=== PATIENT | male | born 1990 | race Caucasian/White ===

== ENCOUNTER 2024-08-24 16:34 | Inpatient (IN) | payer MEDICAID, SELFPAY ==
[2024-08-24] VITALS (11 sets, daily range): BP systolic 89–106; BP diastolic 57–71; PULSE 79–130; RESP 9–33; TEMP 36.8–38.9; O2SAT 85–100; BMI 23.3
--- NOTE | 2024-08-24 17:13 | PC.NURSE ---
sepsis alert called
--- NOTE | 2024-08-24 17:15 | XR_ITS ---
Examination: AP chest single view Technique one AP portable semiupright chest single view Exam date and time: August 24, 2024 Comparison July 31, 2009 INDICATIONS: Shortness of breath hypoxia sepsis today. FINDINGS: Prominent bilateral pneumonia, bibasilar right middle lobe and lingular segment left upper lobe Normal heart size Mild osteopenia IMPRESSION: Significant bilateral pneumonia
--- NOTE | 2024-08-24 17:23 | EDNOTE_ITS ---
ED General RME/HPI General Chief complaint: Flu Like Symptoms Stated complaint: sob, chest pain, cough x 2d Time Seen by Provider: 08/24/24 17:08 Arrival date/time: 08/24/24 16:34 CC: Chest pain shortness of breath HPI ongoing for the past 2 to 3 days with progressive increase in severity. The patient with these almost, stopped using heroin 1 year ago was continues to use methamphetamines until 2 days ago. Patient is awake and alert states the last time he ate was 1-1/2 days ago. Patient states sick chest pain significant when he coughs or takes a deep breath, patient has noted to be tachypneic tachycardic and hypoxemic upon arrival. However patient is awake, alert, baseline with no altered mentation. Related Data Home Medications ?Medication ?Instructions ?Recorded ?Confirmed albuterol sulfate 90 mcg/actuation 1 inh inhalation QI D PRN Shortness 03/01/22 03/01/22 aerosol inhaler Of Breath Or Wheezing Previous Rx's ?Medication ?Instructions ?Recorded ibuprofen 600 mg tablet 600 mg PO Q6H #30 tabs 02/12 naloxone 4 mg/actuation nasal 4 mg intranasal Q3M PRN opioid 08/17/23 spray (Narcan) overdose #2 ea Allergies Allergy/AdvReac Type Severity Reaction Status Date / Time No Known Allergies Allergy Verified 08/24/24 16:38 Review of Systems Review of Systems Narrative Review of Systems: GEN: + fever, no chills, no weight loss EYES: No discharge, no visual changes, no pain HEENT: No ear pain, no congestion, no sore throat PULM: No shortness of breath, + cough, no congestion CV: + chest pain, no dyspnea on exertion, no palpitations GI: No nausea, no vomiting, no diarrhea, no pain, no constipation : No frequency, no urgency, no dysuria MUSC/SKEL: No joint pain, no back pain SKIN: No rash PSYCH: No hallucinations, no depression HEME/LYMPH: No easy bleeding or bruising tendencies NEURO: No weakness, no headache Past Medical History Past Medical History CARDIAC: Negative Congestive Heart Failure RESPIRATORY: Negative Chronic Obstructive Pulmonary Disease (COPD) GENITOURINARY: Negative Renal Disease ENDOCRINE: Negative Diabetes Mellitus Type 1 or Diabetes Mellitus Type 2 Social History SMOKING STATUS: Current every day smoker ED Exam Narrative Physical exam: [General: In moderate discomfort but not in any acute distress Head normocephalic HEENT: Eyes: Pupils pulls are PERRLA EOMs are intact mouth pink dry membranes uvula is midline swallow symmetrical. Nose: No rhinorrhea epistaxis. All other subsystems of HEENT are within acceptable limits Neck is supple nontender no JVD no edema Chest equal chest rise nontender to palpation Respiratory: Tachypnea, bibasilar crackles on exhalation. CV: Rate rhythm is regular, tachycardic, no murmurs rubs or clicks Abdomen is soft nontender no masses positive bowel sounds all 4 quadrants Back: No CVA tenderness no spinous process tenderness from cervical spine thoracic and lumbar spine Skin: Open sores to the right sided nondenominational region of the cranium. A small scratch on the right lower leg, no full-thickness laceration. IV injection scarring to the left AC. Otherwise skin is intact no petechiae rash induration ulceration or crepitus Extremities: Moving all extremity against resistance cap refill less than 2 seconds neurosensory intact Neuro: Awake alert oriented x3 Glascow coma 15 no focal deficits] Course Course Course Narrative: Patient case discussed with resident for Dr. Velásquez who agrees to accept the patient for admission for pneumonia hypoxemia. Quality Measures none Orders Category Date Time Status Bedside COVID-19 Antigen Test NOW Care 08/24/24 19:23 Active Bedside Influenza A&B Antigen Test NOW Care 08/24/24 19:23 Active Dental Intern STAT Care 08/24/24 17:14 Active Continuous Pulse Oximetry STAT Care 08/24/24 17:14 Active EKG (ED ONLY) *Do not use* NOW Care 08/24/24 17:14 Active In and Out Catheter X1PRN Care 08/24/24 17:14 Active Insert IV NOW Care 08/24/24 17:14 Active NPO STAT Care 08/24/24 17:14 Active Strict Intake and Output Routine Care 08/24/24 17:14 Ordered EKG (ED Only) Stat Exams 08/24/24 17:14 Ordered XR chest 1V Stat Exams 08/24/24 17:15 Completed B-Type Natriuretic Peptide Stat Lab 08/24/24 17:50 Completed Blood Culture (Lab) Stat Lab 08/24/24 17:50 Received CBC Stat Lab 08/24/24 17:50 Completed Comprehensive Metabolic Panel Stat Lab 08/24/24 17:50 Completed Drug Screen,Urine Stat Lab 08/24/24 19:24 Ordered HIV (1&2) Antibody Rapid Stat Lab 08/24/24 19:22 Ordered HIV (1&2) Antibody Rapid Stat Lab 08/24/24 19:24 Ordered Hepatitis B Surface Ab Stat Lab 08/24/24 19:25 Ordered Hepatitis B Surface Antigen Stat Lab 08/24/24 19:25 Ordered LDH (Lactate Dehydrogenase) Stat Lab 08/24/24 17:50 Completed Lactate (Lactic Acid) Stat Lab 08/24/24 17:50 Results Lipase Stat Lab 08/24/24 17:50 Completed Magnesium Stat Lab 08/24/24 17:50 Completed Partial Thromboplastin Time Stat Lab 08/24/24 17:50 Completed Phosphorous Stat Lab 08/24/24 17:50 Completed Procalcitonin Stat Lab 08/24/24 17:50 Completed Prothrombin Time with INR Stat Lab 08/24/24 17:50 Completed Troponin I Stat Lab 08/24/24 17:50 Completed Urinalysis Stat Lab 08/24/24 17:14 Ordered Urine Culture Stat Lab 08/24/24 17:14 Ordered Acetaminophen Tab [Tylenol Tab] Med 08/24/24 17:27 Discontinued 650 mg PO X1 ONE Ringers Lactated 1000 ml [Lactated Ringers] 1,914 ml Med 08/24/24 17:14 Discontinued IV 1,914 mls/hr cefTRIAXone/D5w 1gm IV premix [Rocephin/D5w 1gm IV Med 08/24/24 17:20 Discontinued premix] 50 ml IV X1 Oxygen Delivery NOW RT 08/24/24 17:14 Active Vital Signs Vital signs: Vital Signs Temperature 102.1 F H 08/24/24 17:11 Pulse Rate 127 H 08/24/24 17:11 Respiratory Rate 24 H 08/24/24 17:11 Blood Pressure 90/60 08/24/24 17:11 Pulse Oximetry (%) 85 L 08/24/24 17:11 Oxygen Delivery Method Room Air 08/24/24 17:11 [facility] Patient data External records reviewed:: [facility] previous records Clinical information provided by:: patient Social determinants that could affect healthcare access:: none Patient has the following chronic illnesses:: IVDA, methamphetamine abuse How is presenting disease/condition affected by chronic disease/condition?: e xacerbated by Evaluation data The following diagnostics were reviewed and interpreted by me:: lab results, radiology exam(s) and EKG tracing(s) Lab and/or radiology exams considered but not ordered:: EKG performed at 1942 shows a ventricular rate of 105 TN interval 117 QRS of 9 9 QTc of 394 the sinus tachycardia. CBC shows a leukocytosis of 29,000 with anemia no thrombocytopenia Coags show an INR elevated at 1.6 CMP shows sodium 127 potassium of 4.2 chloride of 90 CO2 of 25.5 BUN of 30 creatinine 1.4 glucose of 101. Lactic of 2.1 Procalcitonin of 43 Chest x-ray shows significant bilateral pneumonia. T. bili is mildly elevated. Interpretation Summary: Pneumonia hypoxemia dehydration MILTON Medications Medications considered but not ordered:: None Medication administrations:: Medication Administration History Discontinued Medications Acetaminophen (Acetaminophen 325 Mg Tablet) 650 mg PO X1 ONE Stop: 08/24/24 17:28 Last Admin: 08/24/24 18:07 Dose: 650 mg Documented By: OA Lactated Ringer's (Lactated Ringers) 1,914 mls @ 1,914 mls/hr 30 ml/kg infuse over 60 min (1914 ml) IV .Q1H ONE Stop: 08/24/24 18:13 Ceftriaxone Sodium/Dextrose (Rocephin/D5w 1gm Iv Premix) 50 mls @ 100 mls/hr IV X1 ONE Stop: 08/24/24 17:49 None Consultations Consultation(s) initiated? (list below): No Diagnosis Differential Diagnosis ED Complaint MDM: Pneumonia hypoxemia MILTON Most likely diagnosis given after review of the tests above:: Pneumonia hypoxemia MILTON Admission Indicated Admission indicated?: indicated Explain why admission is indicated or not indicated:: Requires further medical management Admission Request Was there a request for admission?: No Disposition Plan Disposition Plan: Admit Medical Decision Making Differential Diagnosis Differential Diagnosis: Pneumonia hypoxemia MILTON Lab Data 08/24/24 17:50 08/24/24 17:50 Labs: Lab Results 08/24/24 Range/Units 17:50 WBC 29.8 H (3.8-10.6) Thou/mm3 RBC 4.45 L (4.50-5.90) Miln/mm3 Hgb 13.4 L (13.5-16.0) g/dL Hct 38.9 L (41.0-53.0) % MCV 87 (80-100) fL MCH 30.1 (25.0-35.0) pg MCHC 34.4 (31.0-37.0) g/dl RDW Std Deviation 42.8 (35.1-43.9) fL Plt Count 285 (140-440) Thou/mm3 Neut % (Auto) 86 H (37-80) % Lymph % (Auto) 5 L (10-50) % [place] % (Auto) 3 (0-12) % Eos % (Auto) 0 (0-10) % Baso % (Auto) 1 (0-2.5) % Neut # (Auto) 25.6 H (1.8-7.7) Thou/mm3 Lymph # (Auto) 1.5 (1.0-4.8) Thou/mm3 [place] # (Auto) 0.9 H (0.0-0.8) Thou/mm3 Eos # (Auto) 0.0 (0.0-0.5) Thou/mm3 Baso # (Auto) 0.1 (0.0-0.2) Thou/mm3 Immature Gran # (Auto) 1.62 H (0.00-0.00) Thou/mm3 Absolute Nucleated RBC 0.00 (0.00-0.00) Thou/mm3 Immature Gran % 5 H (0-0) % Nucleated RBC % 0 (0) /100 WBC PT 16.9 H (9.0-12.2) Seconds INR 1.6 H (0.9-1.3) APTT 33.4 (22.0-36.0) Seconds Sodium 127 L (136-145) mMol/L Potassium 4.2 (3.4-5.1) mMol/L Chloride 90 L (98-107) mMol/L Carbon Dioxide 25.5 (20.0-31.0) mMol/L Anion Gap 12 (7-16) BUN 30 H (9-23) mg/dL Creatinine 1.4 H (0.6-1.3) mg/dL Estim Creat Clear Calc 67.7 (>60) mL/min eGFR > 60 (60 - ) See Note BUN/Creatinine Ratio 21 H (12-20) Ratio Glucose 101 (74-106) mg/dL Calculated Osmolality 261 L (275-295) Lactic Acid 2.1 H (0.4-2.0) mMol/L Calcium 9.1 (8.3-10.6) mg/dL Corrected Calcium 9.1 (8.5-10.1) mg/dL Phosphorus 3.2 (2.4-5.1) mg/dL Magnesium 1.5 L (1.6-2.6) mg/dL Total Bilirubin 2.1 H (0.3-1.2) mg/dL AST 63 H (0-34) U/L ALT 39 (10-49) U/L Alkaline Phosphatase 83 (46-116) U/L Lactate Dehydrogenase 276 H (120-246) U/L Troponin I < 0.020 (0.0-0.045) ng/mL B-Natriuretic Peptide < 20 (0-100) pg/mL Total Protein 7.5 (5.7-8.2) gm/dL Albumin 4.4 (3.5-5.0) gm/dL Globulin 3.1 (2.3-3.5) gm/dL Albumin/Globulin Ratio 1.4 (1.2-2.2) Lipase 20 (12-53) U/L Procalcitonin 43.00 H (0.0-0.49) ng/ml Discharge Plan Plan Patient Disposition: Other Care w/in Hosp ([facility]) Patient condition on transfer: Stable Prescriptions/Referrals Prescriptions/Med Rec: No Action albuterol sulfate 90 mcg/actuation Hfa Aerosol Inhaler 1 inh INHALATION QID PRN (Reason: Shortness Of Breath Or Wheezing) ibuprofen 600 mg tablet 600 mg PO Q6H Qty: 30 0RF naloxone [Narcan] 4 mg/actuation spray,non-aerosol 4 mg intranasal Q3M PRN (Reason: opioid overdose) Qty: 2 0RF Rx Instructions: spray 1 dose into ONE nostril; alternate nostrils w each dose until help arrives Referrals: No Primary/Family,Physician [Primary Care Provider] - In 1 week Problem List Clinical Impression: Pneumonia, Hypoxemia, MILTON (acute kidney injury) Patient/Caregiver Discharge Instructions Print Language: French Stand Alone Forms: Anna Award Info., Patient Portal Info Letter PA/[employer] Supervising Physician PA/[employer] Supervising Physician: Niraj Becerra ENP
[2024-08-24 18:02] LABS: Lactate (Lactic Acid) 2.1 mMol/L (0.4-2.0)
[2024-08-24 18:03] LABS: Basophils # (Auto) 0.1 Thou/mm3 (0.0-0.2); Basophils % (Auto) 1 % (0-2.5); Eosinophils % (Auto) 0 % (0-10); Hematocrit 38.9 % (41.0-53.0); Hemoglobin 13.4 g/dL (13.5-16.0); Immature Granulocytes % (Auto) 5 % (0-0); Immature Granulocytes Auto 1.62 Thou/mm3 (0.00-0.00); Lymphocytes # (Auto) 1.5 Thou/mm3 (1.0-4.8); Lymphocytes % (Auto) 5 % (10-50); Mean Corpuscular HGB Conc 34.4 g/dl (31.0-37.0); Mean Corpuscular Hemoglobin 30.1 pg (25.0-35.0); Mean Corpuscular Volume 87 fL (80-100); Monocytes # (Auto) 0.9 Thou/mm3 (0.0-0.8); Monocytes % (Auto) 3 % (0-12); Neutrophils # (Auto) 25.6 Thou/mm3 (1.8-7.7); Neutrophils % (Auto) 86 % (37-80); Nucleated Red Blood Cell % 0 /100 WBC (0); Platelet Count 285 Thou/mm3 (140-440); RDW Standard Deviation 42.8 fL (35.1-43.9); Red Blood Count 4.45 Miln/mm3 (4.50-5.90); White Blood Count 29.8 Thou/mm3 (3.8-10.6)
[2024-08-24] MEDS: ACETAMINOPHEN 325 MG TABLET 650 MG PO (18:07)
[2024-08-24 18:25] LABS: INR 1.6 (0.9-1.3); Partial Thromboplastin Time 33.4 Seconds (22.0-36.0); Prothrombin Time 16.9 Seconds (9.0-12.2)
[2024-08-24 18:30] LABS: Alanine Aminotransferase 39 U/L (10-49); Albumin, Serum 4.4 gm/dL (3.5-5.0); Albumin/Globulin Ratio 1.4 (1.2-2.2); Alkaline Phosphatase 83 U/L (46-116); Anion Gap 12 (7-16); Aspartate Amino Transferase 63 U/L (0-34); BUN/Creatinine Ratio 21 Ratio (12-20); Bilirubin,Total 2.1 mg/dL (0.3-1.2); Blood Urea Nitrogen 30 mg/dL (9-23); Calcium 9.1 mg/dL (8.3-10.6); Calcium (Corrected) 9.1 mg/dL (8.5-10.1); Carbon Dioxide 25.5 mMol/L (20.0-31.0); Chloride 90 mMol/L (98-107); Creatinine (Component) 1.4 mg/dL (0.6-1.3); Estimated Creatinine Clearance 67.7 mL/min (>60); Globulin 3.1 gm/dL (2.3-3.5); Glucose 101 mg/dL (74-106); LDH (Lactate Dehydrogenase) 276 U/L (120-246); Lipase 20 U/L (12-53); Magnesium 1.5 mg/dL (1.6-2.6); Osmolality,Calculated 261 (275-295); Phosphorous 3.2 mg/dL (2.4-5.1); Potassium 4.2 mMol/L (3.4-5.1); Sodium 127 mMol/L (136-145); Total Protein 7.5 gm/dL (5.7-8.2); Troponin I < 0.020 ng/mL (0.0-0.045); eGFR > 60 See Note
[2024-08-24 19:22] LABS: B-Type Natriuretic Peptide < 20 pg/mL (0-100)
--- NOTE | 2024-08-24 19:41 | PC.NURSE ---
THIS RN WAS UNABLE TO DO PROPER ASSESSMENT DUE TO ACUITY OF PERSONAL ASSIGNMENT, ONCOMING NURSE WAS UPDATED ON THIS
[2024-08-24] MEDS: RINGERS LACTATED 1914 ML IV (20:10)
[2024-08-24] MEDS: cefTRIAXone/D5w 1gm IV premix 50 ML IV (20:10)
[2024-08-24 20:17] LABS: HIV (1&2) Antibody Rapid Non-Reactive
--- NOTE | 2024-08-24 20:17 | ESHP_ITS ---
<Statement entered by Domingo Flores MD - 08/25/24 10:37> I have discussed and was present for the essential components of the history, physical examination, diagnosis, and treatment plan with the resident. I agree with the patient's care as documented by the resident and amended herein by me. Domingo Flores MD FACP. Documentation for date of: 08/24/24 HPI History of Present Illness Chief complaint: Fever and shortness of breath History of present illness: A 34-year-old with significant past medical history of asthma, remote heroin abuse, meth abuse presented to the hospital with chief complaints of fever and shortness of breath since 2 days. Patient was apparently normal 2 days ago and then he developed sudden onset of fever associated with chills and rigors, shortness of breath is also present since 2 days, which is progressive and worsening over last 2 days. Endorsed that he is having chest pain on deep inspiration. Reported that he noticed a wheeze. Associated with headache and mild bodyaches. Also endorsed that he is having poor oral intake since last 2 days. Denies lower extremity swelling, cough, abdominal pain, nausea, vomiting, diarrhea. Denies recent travel and sick contacts. Per chart review, patient was seen in the ED in 07/2023 for fentanyl overdose and prescribed Narcan. ED Course: -Initial vitals were blood pressure 90/60 mmHg, pulse rate 127 bpm, respiratory rate 24/min, temperature 102.1 ?F, SpO2 85% with room air blood gas -Labs significant for WBC 29.8, sodium 127, BUN 30, creatinine 1.4, lactate 2.1, magnesium 1.5, total bilirubin 2.1, AST 63, ALT 39, LDH 276, procalcitonin 43. Urine toxicology tested positive for opiates, fentanyl, meth and marijuana. -Chest x-ray showed bilateral infiltrates -In the ED, patient was given acetaminophen and IV fluids -Patient was admitted for sepsis secondary to bilateral pneumonia Past medical history: Asthma Past surgical history: Not significant Social history: Stopped heroin 1 year ago per patient, smoking every alternate day, marijuana twice or thrice in a week, methamphetamine abuse. Review of Systems Review of Systems Systems Reviewed: All systems reviewed, normal except as documented Past Medical History Past Medical History RESPIRATORY: Positive Asthma, Wheezing and Smoking Social History SMOKING STATUS: Current some day smoker SUBSTANCE USE: former substance user, marijuana and methamphetamine ALCOHOL: Never HOUSING: Homeless LIVES WITH: Friend(s) OCCUPATION: none Travel History EBOLA RISK: No Exam Vital Signs Temp Pulse Resp BP Pulse Ox O2 Del Method O2 Flow Rate 100.8 F H 123 H 16 103/67 90 L Oxy Mask 8 08/24/24 19:13 08/24/24 19:13 08/24/24 19:13 08/24/24 19:13 08/24/24 19:14 08/24/24 19:14 08/24/24 19:14 FiO2 75 08/24/24 19:00 Narrative Exam General: Awake. Sitting on the bed with high flow on 20 L/min, 75% FiO2. noted dirt on his hands HEENT: Normocephalic, atraumatic, mucous membranes dry. Bilateral diffuse expiratory wheeze heard Heart: Regular rate and rhythm, no murmurs. Lungs: Bilateral diffuse expiratory wheeze heard Abdomen: Soft, nondistended, nontender, positive bowel sounds. ?No guarding or rebound tenderness. Neurologic: Alert and oriented x3, no gross neurological deficit, and patient able to move all 4 extremities. Extremities: No edema. Scratch richards noted on right lower extremity. healed injection site richards on left and right arm Skin: No rash or ecchymoses. Results: Labs 08/24/24 17:50 08/24/24 17:50 Labs: Short CBC 08/24/24 Range/Units 17:50 WBC 29.8 H (3.8-10.6) Thou/mm3 Hgb 13.4 L (13.5-16.0) g/dL Hct 38.9 L (41.0-53.0) % Plt Count 285 (140-440) Thou/mm3 BMP 08/24/24 17:50 Sodium 127 L Potassium 4.2 Chloride 90 L Carbon Dioxide 25.5 BUN 30 H Creatinine 1.4 H Glucose 101 Calcium 9.1 Cardiac Enzymes 08/24/24 Range/Units 17:50 Troponin I < 0.020 (0.0-0.045) ng/mL Liver Function 08/24/24 Range/Units 17:50 Total Bilirubin 2.1 H (0.3-1.2) mg/dL AST 63 H (0-34) U/L ALT 39 (10-49) U/L Alkaline Phosphatase 83 (46-116) U/L Albumin 4.4 (3.5-5.0) gm/dL Quality Measures Quality Measures none Medications Home Medications and Allergies Home Medications ?Medication ?Instructions ?Recorded ?Confirmed ?Type albuterol sulfate 90 mcg/actuation 1 inh inhalation QI D PRN Shortness 03/01/22 08/24/24 History aerosol inhaler Of Breath Or Wheezing Allergies Allergy/AdvReac Type Severity Reaction Status Date / Time No Known Allergies Allergy Verified 08/24/24 16:38 Visit Medications Acetaminophen (Acetaminophen 325 Mg Tablet) 650 mg PO Q6H PRN PRN Reason: Fever >101.5 Stop: 09/23/24 19:51 Albuterol/Ipratropium (Albuterol/Ipratropium (Duoneb) Rt Suzanne 3 Ml Nebu) 3 ml INH Q4HRRT PRN PRN Reason: wheeze or sob Stop: 09/23/24 22:59 Enoxaparin Sodium (Enoxaparin Sod Inj 40 Mg/0.4 Ml Syringe) 40 mg SC QDAY FARTUN Stop: 09/08/24 08:59 Magnesium Sulfate (Magnesium Sulfate Ivpb) 4 gm in 50 mls @ 12.5 mls/hr IV X1 ONE Stop: 08/24/24 23:57 Piperacillin Sod/Tazobactam (Sod 4.5 gm/ Sodium Chloride) 100 mls @ 200 mls/hr IV Q6HR FARTUN Stop: 08/31/24 20:10 Magnesium Hydroxide (Milk Of Magnesia Susp 30 Ml Udc) 30 ml PO QDAY PRN; Protocol PRN Reason: CONSTIPATION Stop: 09/23/24 19:51 Ondansetron HCl (Ondansetron Inj 2 Mg/Ml Inj 2 Ml) 4 mg IV Q6H PRN; Protocol PRN Reason: NAUSEA OR VOMITING Stop: 09/23/24 19:51 Pharmacy Consult (Vancomycin Pharmacy To Dose 1 Each Each) 1 each IV QDAY [facility] Stop: 09/23/24 20:14 Discontinued Medications Acetaminophen (Acetaminophen 325 Mg Tablet) 650 mg PO X1 ONE Stop: 08/24/24 17:28 Last Admin: 08/24/24 18:07 Dose: 650 mg Lactated Ringer's (Lactated Ringers) 1,914 mls @ 1,914 mls/hr 30 ml/kg infuse over 60 min (1914 ml) IV .Q1H ONE Stop: 08/24/24 18:13 Last Admin: 08/24/24 20:10 Dose: 1,914 mls/hr Ceftriaxone Sodium/Dextrose (Rocephin/D5w 1gm Iv Premix) 50 mls @ 100 mls/hr IV X1 ONE Stop: 08/24/24 17:49 Last Admin: 08/24/24 20:10 Dose: 100 mls/hr Assessment & Plan Plan A 34-year-old with significant past medical history of asthma, remote heroin abuse, meth abuse presented to the hospital with chief complaints of fever and shortness of breath since 2 days and admitted for acute hypoxic respiratory failure secondary to sepsis due to bilateral pneumonia # Sepsis # Acute hypoxic respiratory failure # Acute Asthma exacerbation # Bilateral pneumonia # Leukocytosis -Presented to the hospital with chief complaints of fever and shortness of breath since 2 days -Also complaining of chest pain on deep inspirations. Denies cough, nausea, vomiting, diarrhea -On examination, bilateral diffuse wheeze heard -Sepsis = pulse rate 127 bpm, temperature 102.1 ?F, WBC 29.8 + bilateral pneumonia -Labs at the time of admission showed WBC 29.8, sodium 127, procalcitonin 43, magnesium 1.5 -chest x ray at the time of admission showed bilateral patchy infiltrates. -Patient received 1900 mL bolus of NS in the ED, followed by ceftriaxone and started on high flow oxygen -Tested negative for COVID, influenza A and B Plan -Blood, sputum Gram stain and culture were ordered -MRSA nasal screen ordered -Cocci antibodies were sent -One-time budesonide inhalation was given -Started on IV methylprednisolone 40 Mg IV twice daily [08/25- -DuoNebs inhalations as needed -Started on Zosyn and doxycycline [08/25- -incentive spirometry # Hyponatremia -Likely due to poor oral intake in the last 2 days -Sodium at the time of admission is 127 -Patient received a bolus of 1900 mL NS in the ED -Started on maintenance fluids LR at 100 mL/h -Monitor serum electrolytes and correct accordingly # Hypomagnesemia -Magnesium at the time of admission is 1.5 -4 g of IV magnesium is given -Monitor electrolytes and correct accordingly # Acute kidney injury Likely prerenal in the setting of poor oral intake -Creatinine on 08/17/2023 is 0.8 -Creatinine at the time of admission is 1.4, BUN is 30 -Bolus of 1.9 L NS is given and started on LR at 100 mL/h BUN -Monitor renal functions and avoid nephrotoxic medications # Hyperbilirubinemia # Acute coagulopathy Likely elevated in the setting of acute illness -Bilirubin at the time of admission is 2.1, INR is 1.6 -Bilirubin on 08/17/2023 is 1.4 -Liver ultrasound ordered showed CBD of 0.9 cm, fatty liver -Monitor liver functions # Polysubstance abuse -Patient endorsed that he is using meth, marijuana, smoking tobacco and denied alcohol abuse -Urine toxicology tested positive for fentanyl, opiates, amphetamine, marijuana -Patient endorsed that he stopped heroin abuse 1 year ago -Patient had an ED visit in 08/20 for fentanyl overdose and received Narcan Plan -director of tax services referral -HIV, hepatitis sent -Lorazepam 2 Mg IV as needed -Cardiac echo ordered as the patient has polysubstance abuse including meth Hospital Maintenance: Dispo: tele DVT ppx: lovenox GI ppx: pantoprazole Diet: Regular IV lines: Peripheral Code status: Full Patient plan of care was discussed with the attending physician, Dr. Mark Mccann, PGY1
[2024-08-24 20:25] LABS: Hepatitis B Surface Ab Reactive (Immune) (Immune); Hepatitis B Surface Antigen Non Reactive (Non React)
[2024-08-24 20:57] LABS: Reflex Lactate? Y
[2024-08-24] MEDS: Magnesium Sulfate 4 GM Ivpb 4 GM/50 ML BAG IV (21:00)
[2024-08-24 21:17] LABS: Collection Type, Urine Clean Catch
[2024-08-24 21:40] LABS: Bacteria,Urine Rare; Bilirubin,Urine Negative (Negative); Blood,Urine Negative (Negative); Clarity,Urine Turbid (Clear/Hazy); Color,Urine Yellow (Lt Yel-Yel); Glucose, Urine Negative (Negative); Hyaline Casts,Urine < 1 /hpf (0-1); Ketones,Urine Negative (Negative); Leukocyte Esterase,Urine Negative (Negative); Nitrite,Urine Negative (Negative); PH,Urine 5.5 (5.0-7.0); Protein,Urine 1+ (Neg - Trace); RBC,Urine 6 /hpf (0-3); Specific Gravity,Urine 1.029 (1.001-1.035); Squamous Epithelial Cell,Urine < 1 /hpf (0-5); Urobilinogen,Urine Negative mg/dL (0.0-1.0); WBC,Urine 3 /hpf (0-5)
--- NOTE | 2024-08-24 21:40 | XR_ITS ---
Examination: Abdomen sonogram, Limited Date and time of exam: August 24, 2024 1059 hours INDICATIONS: Elevated bili ribbon on laboratory examination today Technique: Real-time matt scale transabdominal sonographic images of the upper abdomen obtained. Findings: Gallbladder sludge Negative for gallstones Common bile duct 0.9 cm Pancreatic head 2.2 cm Liver 19.5 cm fatty liver no focal liver lesions Normal hepatopedal portal venous flow Patent IVC IMPRESSION: Gallbladder sludge Negative for cholelithiasis, negative for cholecystitis Abnormal enlargement common bile duct 0.9 cm, recommend MRCP follow-up to exclude common bile duct stones and/or stricture
[2024-08-24 21:41] LABS: Amphetamine/Methamp Scrn,U Positive (Negative); Barbiturate Screen,Urine Negative (Negative); Benzodiazepines Screen,Urine Negative (Negative); Benzoylecgonine Screen, Ur Negative (Negative); Fentanyl Screen,Urine Positive (Negative); Opiate Screen,Urine Positive (Negative); THC Screen,Urine Positive (Negative)
[2024-08-24 21:43] LABS: Lactic Acid, 3 HR 1.8 mMol/L (0.4-2.0)
[2024-08-24] MEDS: BUDESONIDE RT 0.5 MG/2 ML NEBU INH (22:35)
[2024-08-24] MEDS: SODIUM CHLORIDE RT 10% 15 ML NEBU 5 ML INH (22:39)
--- NOTE | 2024-08-24 23:37 | ECHO_ITS ---
Transthoracic Echo Report Ht (in): 66 Wt (lb): 127 Exam Location: Echo Lab Status: Inpatient Backend Tester: Ivis Cohen Indications: Procedure Performed: BP: 90 / 60 HR: Technical Quality: Technically difficult study MEASUREMENTS (Male / Female) Normal Values DOPPLER MV Area PHT 5.5 cm? Mitral E Point Velocity 72.8 cm/s Mitral A Point Velocity 61.6 cm/s Mitral E to A Ratio 1.2 FINDINGS Left Ventricle Normal left ventricular size and wall thickness. Hyperdynamic LV. Normal left ventricular diastolic filling pattern for age. The ejection fraction is visually estimated at 70-75 %. Right Ventricle The right ventricle is normal in size and systolic function. Left Atrium The left atrium is normal by two-dimensional, color flow and Doppler imaging with no structural abnormalities, no thrombus formation present. Right Atrium The right atrium is normal by two-dimensional imaging, color flow and Doppler imaging with no structural abnormalities, no thrombus formation present. Atrial Septum The interatrial septum appears normal with no evidence of a shunt. Aorta The aorta is normal by two-dimensional, color flow and Doppler interrogation. Mitral Valve The mitral valve is normal by two-dimensional, color flow and Doppler interrogation. There is no significant mitral valve regurgitation, stenosis or prolapse. Aortic Valve The aortic valve is trileaflet and normal by two-dimensional, color flow and Doppler interrogation. There is no significant aortic valve regurgitation. Tricuspid Valve The tricuspid valve is normal by two-dimensional, color flow and Doppler interrogation. There is no significant tricuspid valve regurgitation. Pulmonic Valve The pulmonic valve is not well visualized. There is no significant pulmonic valve regurgitation. Vessels The pulmonary artery appears normal. The inferior vena cava pulmonary and hepatic veins appear normal. Pericardium The pericardium is normal by two-dimensional imaging. There is no significant pericardial effusion. CONCLUSIONS Indication: Meth abuse Normal LV size and function. Hyperdynamic LV. Estimated EF 70-75 %. Normal RV size and function. Trace TR Daniel Winter (Electronically Signed) Final Date: 26 August 2024 08:09
[2024-08-25] VITALS (10 sets, daily range): BP systolic 90–110; BP diastolic 59–72; PULSE 82–117; RESP 12–97; TEMP 36.6–36.9; O2SAT 94–100; BMI 23.8
[2024-08-25] MEDS: DOXYCYCLINE 100 MG TABLET PO ×3 (00:11→20:32)
[2024-08-25] MEDS: RINGERS LACTATED 1000 ML 1,000 ML 100 ML IV (00:11)
[2024-08-25] MEDS: PIPER/TAZO INJ 4.5 GM in SODIUM CHLORIDE 0.9% (P) 100 ML IV ×2 (00:11→05:45)
[2024-08-25 00:20] LABS: Base Excess 5 (-3-3); HCO3 29 mEq/L (20-26); Inspired O2, VO2 Liters 12 L/min; Inspired Oxygen, FIO2 21 %; O2 Saturation 93 % (91-98); PCO2 39 mmHg (32.0-48.0); PO2 62 mmHg (83-108); pH, Arterial 7.48 (7.35-7.45)
[2024-08-25 00:22] LABS: Allen Test Performed/OK; Puncture Site Left Radial
[2024-08-25 06:57] LABS: Basophils # (Auto) 0.1 Thou/mm3 (0.0-0.2); Basophils % (Auto) 0 % (0-2.5); Eosinophils # (Auto) 0.1 Thou/mm3 (0.0-0.5); Eosinophils % (Auto) 1 % (0-10); Hematocrit 35.8 % (41.0-53.0); Hemoglobin 12.3 g/dL (13.5-16.0); Immature Granulocytes % (Auto) 7 % (0-0); Immature Granulocytes Auto 1.63 Thou/mm3 (0.00-0.00); Lymphocytes # (Auto) 0.6 Thou/mm3 (1.0-4.8); Lymphocytes % (Auto) 3 % (10-50); Mean Corpuscular HGB Conc 34.4 g/dl (31.0-37.0); Mean Corpuscular Hemoglobin 29.9 pg (25.0-35.0); Mean Corpuscular Volume 87 fL (80-100); Monocytes # (Auto) 0.3 Thou/mm3 (0.0-0.8); Monocytes % (Auto) 2 % (0-12); Neutrophils # (Auto) 19.4 Thou/mm3 (1.8-7.7); Neutrophils % (Auto) 87 % (37-80); Nucleated Red Blood Cell % 0 /100 WBC (0); Platelet Count 271 Thou/mm3 (140-440); RDW Standard Deviation 41.6 fL (35.1-43.9); Red Blood Count 4.12 Miln/mm3 (4.50-5.90); White Blood Count 22.2 Thou/mm3 (3.8-10.6)
[2024-08-25 07:18] LABS: Alanine Aminotransferase 32 U/L (10-49); Albumin, Serum 3.9 gm/dL (3.5-5.0); Albumin/Globulin Ratio 1.3 (1.2-2.2); Alkaline Phosphatase 72 U/L (46-116); Anion Gap 8 (7-16); Aspartate Amino Transferase 44 U/L (0-34); BUN/Creatinine Ratio 21 Ratio (12-20); Bilirubin,Total 1.3 mg/dL (0.3-1.2); Blood Urea Nitrogen 23 mg/dL (9-23); Calcium 9.4 mg/dL (8.3-10.6); Calcium (Corrected) 9.5 mg/dL (8.5-10.1); Carbon Dioxide 28.1 mMol/L (20.0-31.0); Chloride 98 mMol/L (98-107); Creatinine (Component) 1.1 mg/dL (0.6-1.3); Estimated Creatinine Clearance 86.2 mL/min (>60); Glucose 120 mg/dL (74-106); Magnesium 2.5 mg/dL (1.6-2.6); Osmolality,Calculated 272 (275-295); Potassium 4.4 mMol/L (3.4-5.1); Sodium 134 mMol/L (136-145); Thyroid Stimulating Hormone 0.55 uIU/mL (0.55-4.78); Total Protein 6.9 gm/dL (5.7-8.2); eGFR > 60 See Note
[2024-08-25 07:33] LABS: Glucose Estimated Average 103 mg/dL (80-131); Hemoglobin A1C 5.2 % Hgb (4.8-6.0)
[2024-08-25] MEDS: ALBUTEROL/IPRATROPIUM (Duoneb) RT SOL 3 ML NEBU INH ×4 (07:36→18:15)
[2024-08-25 07:41] LABS: Respiratory Syncytial Virus Ag Negative (Negative)
[2024-08-25 08:01] LABS: Ag, Group B Strep, Urine Negative (Negative); Ag, H Influenza B, Urine Negative (Negative); Ag, N Mening B/E Coli K1, Ur Negative (Negative); Ag, N Meningitidis ACY W135 Ur Negative (Negative); Ag, Strep Pneumonia Urine Negative (Negative)
[2024-08-25] MEDS: PANTOPRAZOLE INJ 40 MG VIAL IV (08:01)
[2024-08-25] MEDS: ENOXAPARIN SOD INJ 40 MG/0.4 ML SYRINGE SC (08:01)
[2024-08-25 08:18] LABS: INR 1.4 (0.9-1.3); Prothrombin Time 14.5 Seconds (9.0-12.2)
--- NOTE | 2024-08-25 09:48 | PD.RESPRO ---
Documentation for date of: 08/25/24 Subjective Subjective Interval history: Patient was seen at bedside this morning. No overnight events. Patient's breathing is significantly improved from last night. There is still some wheezing, but patient is doing a lot better. He has no other complaints this time. Exam Vital Signs Temp Pulse Resp BP Pulse Ox O2 Del Method O2 Flow Rate 98.3 F 102 H 12 90/59 L 98 Nasal Cannula 4 08/25/24 08:00 08/25/24 08:00 08/25/24 08:00 08/25/24 08:00 08/25/24 08:00 08/25/24 08:00 08/25/24 08:00 FiO2 60 08/24/24 23:05 Narrative Exam General: A/O x3, no acute distress, discheveled Eyes: PERRL, EOMI. Anicteric, vision grossly intact. Ears: No ear pain, no ear discharge, Hearing grossly intact. Nose: No nasal discharge. Mouth/Throat: Moist mucous membranes, no redness, no lesions. Neck: Neck supple, non-tender, no cervical lymphadenopathy. Lungs: Wheezing GIACOMO, No accessory muscle use. Cardio: Normal S1/S2, regular rhythm, no murmurs, no JVD Abdomen: Soft, non-tender, no palpable masses, peristalsis present, no guarding or rebound. Extremities: Symmetrical, no significant deformities, no peripheral edema , non-tender, peripheral pulses presents. Skin: No rashes, no lesions, warm to touch. multiple abrasions in face, scaly/dry skin patches in R elbow and knuckles. Neuro: No focal neurological deficits. motor and sensory intact. Objective Labs 08/26/24 04:23 08/26/24 04:23 Labs: Laboratory Results - last 24 hr 08/24/24 08/24/24 08/24/24 00:08 17:50 21:05 WBC 29.8 H RBC 4.45 L Hgb 13.4 L Hct 38.9 L MCV 87 MCH 30.1 MCHC 34.4 RDW Std Deviation 42.8 Plt Count 285 Neut % (Auto) 86 H Lymph % (Auto) 5 L Bull[place] % (Auto) 3 Eos % (Auto) 0 Baso % (Auto) 1 Neut # (Auto) 25.6 H Lymph # (Auto) 1.5 Bull[place] # (Auto) 0.9 H Eos # (Auto) 0.0 Baso # (Auto) 0.1 Immature Gran # (Auto) 1.62 H Absolute Nucleated RBC 0.00 Immature Gran % 5 H Nucleated RBC % 0 PT 16.9 H INR 1.6 H APTT 33.4 Puncture Site Left Radial ABG pH 7.48 H ABG pCO2 39 ABG pO2 62 L ABG HCO3 29 H ABG O2 Saturation 93 ABG Base Excess 5 H Oxygen Liter Flow 12 FiO2 21 Sodium 127 L Potassium 4.2 Chloride 90 L Carbon Dioxide 25.5 Anion Gap 12 BUN 30 H Creatinine 1.4 H Estim Creat Clear Calc 67.7 eGFR > 60 BUN/Creatinine Ratio 21 H Glucose [address] Glu mg/dL Hemoglobin A1c Calculated Osmolality 261 L Lactic Acid 2.1 H Calcium 9.1 Corrected Calcium 9.1 Phosphorus 3.2 Magnesium 1.5 L Total Bilirubin 2.1 H AST 63 H ALT 39 Alkaline Phosphatase 83 Lactate Dehydrogenase 276 H Troponin I < 0.020 B-Natriuretic Peptide < 20 Total Protein 7.5 Albumin 4.4 Globulin 3.1 Albumin/Globulin Ratio 1.4 Lipase 20 Procalcitonin 43.00 H TSH Ur Collection Type Clean Catch Urine Color Yellow Urine Clarity Turbid A Urine pH 5.5 Ur Specific Riggins 1.029 Urine Protein 1+ A Urine Glucose (UA) Negative Urine Ketones Negative Urine Blood Negative Urine Nitrite Negative Urine Bilirubin Negative Urine Urobilinogen (Auto) Negative Ur Leukocyte Esterase Negative Urine RBC 6 H Urine WBC 3 Ur Squamous Epith Cells < 1 Urine Bacteria Rare Hyaline Casts < 1 Urine Opiates Screen Positive A Urine Fentanyl Screen Positive A Ur Barbiturates Screen Negative U Amphetamin/Meth Scrn Positive A U Benzodiazepines Scrn Negative U Cocaine Metab Screen Negative U Marijuana (THC) Screen Positive A Hep Bs Antigen Non Reactive Hep Bs Antibody Reactive (Immune) HIV 1&2 Antibody Rapid Non-Reactive H.influenzae Type B Ag Negative U N.meningtid ACY/W135 Negative N.meningitid B/E.col K1 Negative RSV Rapid Urine Strep B Antigen Negative Ur Strep pneumoniae Ag Negative 08/24/24 08/25/24 08/25/24 21:29 02:55 06:27 WBC 22.2 H D RBC 4.12 L Hgb 12.3 L Hct 35.8 L MCV 87 MCH 29.9 MCHC 34.4 RDW Std Deviation 41.6 Plt Count 271 Neut % (Auto) 87 H Lymph % (Auto) 3 L [place] % (Auto) 2 Eos % (Auto) 1 Baso % (Auto) 0 Neut # (Auto) 19.4 H Lymph # (Auto) 0.6 L [place] # (Auto) 0.3 Eos # (Auto) 0.1 Baso # (Auto) 0.1 Immature Gran # (Auto) 1.63 H Absolute Nucleated RBC 0.00 Immature Gran % 7 H Nucleated RBC % 0 PT 14.5 H INR 1.4 H APTT Puncture Site ABG pH ABG pCO2 ABG pO2 ABG HCO3 ABG O2 Saturation ABG Base Excess Oxygen Liter Flow FiO2 Sodium 134 L Potassium 4.4 Chloride 98 Carbon Dioxide 28.1 Anion Gap 8 BUN 23 Creatinine 1.1 Estim Creat Clear Calc 86.2 eGFR > 60 BUN/Creatinine Ratio 21 H Glucose [address] Glu mg/dL 103 Hemoglobin A1c 5.2 Calculated Osmolality 272 L Lactic Acid 1.8 Calcium 9.4 Corrected Calcium 9.5 Phosphorus Magnesium 2.5 Total Bilirubin 1.3 H D AST 44 H ALT 32 Alkaline Phosphatase 72 Lactate Dehydrogenase Troponin I B-Natriuretic Peptide Total Protein 6.9 Albumin 3.9 D Globulin 3.0 Albumin/Globulin Ratio 1.3 Lipase Procalcitonin TSH 0.55 Ur Collection Type Urine Color Urine Clarity Urine pH Ur Specific Riggins Urine Protein Urine Glucose (UA) Urine Ketones Urine Blood Urine Nitrite Urine Bilirubin Urine Urobilinogen (Auto) Ur Leukocyte Esterase Urine RBC Urine WBC Ur Squamous Epith Cells Urine Bacteria Hyaline Casts Urine Opiates Screen Urine Fentanyl Screen Ur Barbiturates Screen U Amphetamin/Meth Scrn U Benzodiazepines Scrn U Cocaine Metab Screen U Marijuana (THC) Screen Hep Bs Antigen Hep Bs Antibody HIV 1&2 Antibody Rapid H.influenzae Type B Ag U N.meningtid ACY/W135 N.meningitid B/E.col K1 RSV Rapid Negative Urine Strep B Antigen Ur Strep pneumoniae Ag ABG Interpretation ABG results: 08/24/24 00:08 ABG pH 7.48 H ABG pCO2 39 ABG pO2 62 L ABG HCO3 29 H ABG O2 Saturation 93 ABG Base Excess 5 H Quality Measures Quality Measures none Assessment & Plan Assessment Current Active Medications: Generic Name Dose Route Start Last Admin Trade Name Freq PRN Reason Stop Dose Admin Acetaminophen 650 mg 08/24/24 20:30 Acetaminophen 325 Mg Tablet PO 09/23/24 19:51 Q6H PRN Fever >100.4 or Pain 1-10 Albuterol/Ipratropium 3 ml 08/25/24 07:15 08/25/24 07:36 Albuterol/Ipratropium (Duoneb) Rt Suzanne 3 Ml Nebu INH 09/24/24 07:14 3 ml Q4HRRT FARTUN Administration Doxycycline Hyclate 100 mg 08/24/24 22:00 08/25/24 08:01 Doxycycline 100 Mg Tablet PO 08/31/24 21:59 100 mg BID FARTUN Administration Enoxaparin Sodium 40 mg 08/25/24 09:00 08/25/24 08:01 Enoxaparin Sod Inj 40 Mg/0.4 Ml Syringe SC 09/08/24 08:59 40 mg QDAY FARTUN Administration Ceftriaxone Sodium/Dextrose 50 mls @ 100 mls/hr 08/25/24 09:36 Rocephin/D5w 1gm Iv Premix IV 09/01/24 09:35 QDAY FARTUN Lorazepam 2 mg 08/25/24 00:46 Lorazepam 2 Mg/Ml Vial IVP 08/30/24 00:45 X1 PRN AGITATION (MODERATE) Magnesium Hydroxide 30 ml 08/24/24 19:52 Milk Of Magnesia Susp 30 Ml Udc PO 09/23/24 19:51 QDAY PRN CONSTIPATION Protocol Methylprednisolone Sodium Succinate 40 mg 08/26/24 09:00 Methylprednisolone Sod Succ 40 Mg Vial IVP 09/02/24 08:59 QDAY FARTUN Ondansetron HCl 4 mg 08/24/24 19:52 Ondansetron Inj 2 Mg/Ml Inj 2 Ml IV 09/23/24 19:51 Q6H PRN NAUSEA OR VOMITING Protocol Pantoprazole Sodium 40 mg 08/25/24 09:00 08/25/24 08:01 Pantoprazole Inj 40 Mg Vial IV 09/24/24 08:59 40 mg QDAY FARTUN Administration Plan 34-year-old male with past medical history of asthma and polysubstance abuse including heroine, fentanyl, meth, and marijuana was admitted to hospital on 08/24/2023 due to acute hypoxic respiratory failure likely in the setting of asthma exacerbation likely secondary to community-acquired pneumonia. #Acute hypoxic respiratory failure likely secondary to #Asthma exacerbation in the setting of #Community-acquired pneumonia ? Patient came in with complaints of fevers as well as shortness of breath and wheezing ? Initially patient came in with WBC count of 29.9 and today it is 22.2 ?Chest x-ray showed bilateral pneumonia -DC'd Zosyn 08/24- Plan: ? Continue doxycycline and Rocephin [08/24/2024?] ?Continue methylprednisone 40 mg IV daily [08/25/2024?] ?Continue albuterol ipratropium every 4 hours ? Sputum, blood, and urine cultures pending ? Will continue to monitor # Hypoosmolar hyponatremia ? Initially patient came in with sodium of 127 ?Patient received 1.9 L of NS in the ED and was placed on maintain his fluids by night team ?Most likely in the setting of dehydration ? Sodium today was 134 Plan: ? Discontinued fluids ? Will continue to monitor #MILTON ? Patient came in with creatinine of 1.4 from baseline of 0.8 in 2023 ? Current today 1.1 Plan: ? Avoid nephrotoxic agents ? Renally dose medications ? Will continue to monitor #Hyperbilirubinemia ? Patient came in with T bilirubin of 2.1 from baseline of 1.5 on 2023 ?Patient has no abdominal pain, nausea, vomiting ? T bilirubin 1.3 today ? Liver ultrasound did not show any liver lesions and only showed some gallbladder sludge, but no cholecystitis or cholelithiasis. CBD was mildly enlarged at 0.9 cm. Plan: ? Will continue to monitor #Coagulopathy ? Patient came in with INR of 1.6 ? INR today 1.4 Plan: ? Will continue to monitor #Polysubstance abuse ? Patient's U tox was positive for fentanyl, meth, opiates, and THC Plan: ?Lorazepam 2 mg IV as needed for agitation ? Referred to social insurance administrator ? Counseled patient on importance of avoiding illicit drugs. Disposition: Patient seen in telemetry fro AHRF 2/2 Asthma exacerbation, continue Abx and steroids. Diet: Regular GI prophylaxis: protonix DVT prophylaxis: Lovenox Code: Full code Case disclosed with Attending Dr. Solis and My senior Dr. Araiza PGY2. [place] PGY1 Senior Resident Attestation: The patient is doing much better. We will continue with doxycycline and rocephin for now. Possibly DC by tomorrow if he is clinically stable. I discussed with and supervised the medical assistant internal medicine physician involved in the care of this patient. I personally saw and examined the patient and discussed the assessment and plan with the entire medicine team, including my attending. I agree with the assessment and plan as documented above. Kirk Araiza MD PGY2 Internal Medicine Attending Provider Attestation/Addendum I reviewed labs, imaging, EKG, home medications and prior available records. Face to face evaluation was performed by me. I have personally examined the patient and discussed assessment and plan with the IM team. I reviewed the resident note and agree with the plan with exceptions as below. Acute hypoxic respiratory failure Bilateral pneumonia Asthma exacerbation Hyponatremia Acute hypotension Leukocytosis Polysubstance abuse Continue ceftriaxone/doxycycline Continue oxygen as needed Continue DuoNebs and systemic corticosteroids Monitor WBC: Downtrending Discontinued IV fluids given improvement in hyponatremia Monitor BP Follow-up cultures
[2024-08-25] MEDS: cefTRIAXone/D5w 1gm IV premix 50 ML IV (09:52)
[2024-08-25 14:40] LABS: Cocci Serology, IgM Positive (Negative)
[2024-08-25 14:42] LABS: Cocid Sro, CF/ID (UCD) NO CHG* See Sep Rpt
[2024-08-25] MEDS: FLUCONAZOLE 100 MG TABLET 400 MG PO (20:32)
[2024-08-26] VITALS: BP 94/61; PULSE 82; PULSE 85; RESP 11; TEMP 36.5; O2SAT 95
[2024-08-26 02:10] VITALS: PULSE 80; RESP 18; O2SAT 99
[2024-08-26] MEDS: ALBUTEROL/IPRATROPIUM (Duoneb) RT SOL 3 ML NEBU INH ×2 (02:10→06:30)
[2024-08-26 04:00] VITALS: BP 123/83; PULSE 66; PULSE 72; RESP 17; TEMP 36.7; O2SAT 98
[2024-08-26] MEDS: ACETAMINOPHEN 325 MG TABLET 650 MG PO (04:03)
[2024-08-26 05:49] LABS: Basophils # (Auto) 0.1 Thou/mm3 (0.0-0.2); Basophils % (Auto) 0 % (0-2.5); Eosinophils % (Auto) 0 % (0-10); Hematocrit 36.2 % (41.0-53.0); Hemoglobin 12.1 g/dL (13.5-16.0); Immature Granulocytes % (Auto) 1 % (0-0); Immature Granulocytes Auto 0.32 Thou/mm3 (0.00-0.00); Lymphocytes # (Auto) 2.2 Thou/mm3 (1.0-4.8); Lymphocytes % (Auto) 9 % (10-50); Mean Corpuscular HGB Conc 33.4 g/dl (31.0-37.0); Mean Corpuscular Hemoglobin 29.4 pg (25.0-35.0); Mean Corpuscular Volume 88 fL (80-100); Monocytes # (Auto) 1.1 Thou/mm3 (0.0-0.8); Monocytes % (Auto) 4 % (0-12); Neutrophils # (Auto) 21.2 Thou/mm3 (1.8-7.7); Neutrophils % (Auto) 85 % (37-80); Nucleated Red Blood Cell % 0 /100 WBC (0); Platelet Count 305 Thou/mm3 (140-440); Red Blood Count 4.12 Miln/mm3 (4.50-5.90); White Blood Count 24.9 Thou/mm3 (3.8-10.6)
[2024-08-26 06:00] VITALS: BMI 24.6
[2024-08-26 06:33] VITALS: PULSE 68; PULSE 69; RESP 19; RESP 21; RESP 99; O2SAT 100
[2024-08-26 06:36] LABS: Alanine Aminotransferase 39 U/L (10-49); Albumin, Serum 3.7 gm/dL (3.5-5.0); Albumin/Globulin Ratio 1.2 (1.2-2.2); Alkaline Phosphatase 95 U/L (46-116); Anion Gap 5 (7-16); Aspartate Amino Transferase 39 U/L (0-34); BUN/Creatinine Ratio 21 Ratio (12-20); Bilirubin,Total 0.5 mg/dL (0.3-1.2); Blood Urea Nitrogen 19 mg/dL (9-23); Calcium 9.1 mg/dL (8.3-10.6); Calcium (Corrected) 9.3 mg/dL (8.5-10.1); Carbon Dioxide 28.1 mMol/L (20.0-31.0); Chloride 103 mMol/L (98-107); Creatinine (Component) 0.9 mg/dL (0.6-1.3); Estimated Creatinine Clearance 105.3 mL/min (>60); Globulin 3.1 gm/dL (2.3-3.5); Glucose 137 mg/dL (74-106); Osmolality,Calculated 276 (275-295); Potassium 3.6 mMol/L (3.4-5.1); Sodium 136 mMol/L (136-145); Total Protein 6.8 gm/dL (5.7-8.2); eGFR > 60 See Note
[2024-08-26 08:00] VITALS: PULSE 89
[2024-08-26] MEDS: FLUCONAZOLE 100 MG TABLET 400 MG PO (09:03)
[2024-08-26] MEDS: DOXYCYCLINE 100 MG TABLET PO (09:03)
[2024-08-26] MEDS: ENOXAPARIN SOD INJ 40 MG/0.4 ML SYRINGE SC (09:03)
[2024-08-26] MEDS: cefTRIAXone/D5w 1gm IV premix 50 ML IV (09:04)
[2024-08-26] MEDS: PANTOPRAZOLE INJ 40 MG VIAL IV (09:04)
[2024-08-26 12:00] VITALS: BP 121/76; BP 144/93; PULSE 74; PULSE 80; RESP 16; RESP 17; TEMP 36.4; O2SAT 96
--- NOTE | 2024-08-26 12:38 | PD.RESDS ---
Planned Discharge Date 08/26/24 DS: Providers Provider Date of admission: 08/24/24 19:52 Primary care physician: Physician No Primary/Family Admitting Provider: Domingo Flores MD Attending Provider on Admission: Domingo Flores MD Attending Provider on DC: Glendy Rabago MD Discharging Provider: Glendy Rabago MD DS: Diagnosis Problem List Completed Was Problem List Reviewed/Reconciled?: Yes Hospital Course Hospital Course Hospital course: 34-year-old with significant past medical history of asthma, remote heroin abuse, meth abuse presented to the hospital with chief complaints of fever and shortness of breath since 2 days. Patient was apparently normal 2 days ago and then he developed sudden onset of fever associated with chills and rigors, shortness of breath is also present since 2 days, which is progressive and worsening over last 2 days. Endorsed that he is having chest pain on deep inspiration. Reported that he noticed a wheeze. Associated with headache and mild bodyaches. Also endorsed that he is having poor oral intake since last 2 days. Denies lower extremity swelling, cough, abdominal pain, nausea, vomiting, diarrhea. Denies recent travel and sick contacts.Per chart review, patient was seen in the ED in 07/2023 for fentanyl overdose and prescribed Narcan. Ed labs significant for WBC 29.8, sodium 127, BUN 30, creatinine 1.4, lactate 2.1, magnesium 1.5, total bilirubin 2.1, AST 63, ALT 39, LDH 276, procalcitonin 43. Urine toxicology tested positive for opiates, fentanyl, meth and marijuana. Chest x-ray showed bilateral infiltrates.Patient was admitted for sepsis secondary to bilateral pneumonia. In the course of hospital stay was started on doxycycline and Rocephin with methylprednisone 40Q day. Cocci IgM was positive , started him on fluconazole . Sodium improved and [place] resolved. he had mild hyperbillirubinemia Liver ultrasound did not show any liver lesions and only showed some gallbladder sludge, but no cholecystitis or cholelithiasis. CBD was mildly enlarged at 0.9 cm. Today's vitals are stable. Physical examination generally unremarkable, he is stable to discharge back home. Instructions on discharge: Continue amoxicillin for 5 days Follow-up with PCP 1 to 2 weeks after discharge Continue Solu-Medrol Dosepak Return to ED if symptoms worsen Encourage you to discontinue drugs continue fluconazole , follow-up with PCP for IgG report #Acute hypoxic respiratory failure likely secondary to #Asthma exacerbation in the setting of #Community-acquired pneumonia #cocci pneumonia # Hypoosmolar hyponatremia- resolved #MILTON-resolve #Hyperbilirubinemia #Coagulopathy #Polysubstance abuse Case Discussed with my attending Dr Solis, Glendy Rabago MD,PGY-3 Time Spent with Patient Time attestation: Total time spent providing and/or coordinating discharge services:>30 min Exam Vital Signs Temp Pulse Resp BP Pulse Ox O2 Del Method O2 Flow Rate 98.0 F 89 19 123/83 100 Room Air 2 08/26/24 04:00 08/26/24 08:00 08/26/24 06:33 08/26/24 04:00 08/26/24 06:33 08/26/24 04:00 08/25/24 14:23 FiO2 60 08/24/24 23:05 Narrative Exam General: A/O x3, no acute distress, discheveled Eyes: PERRL, EOMI. Anicteric, vision grossly intact. Ears: No ear pain, no ear discharge, Hearing grossly intact. Nose: No nasal discharge. Mouth/Throat: Moist mucous membranes, no redness, no lesions. Neck: Neck supple, non-tender, no cervical lymphadenopathy. Lungs: Wheezing GIACOMO, No accessory muscle use. Cardio: Normal S1/S2, regular rhythm, no murmurs, no JVD Abdomen: Soft, non-tender, no palpable masses, peristalsis present, no guarding or rebound. Extremities: Symmetrical, no significant deformities, no peripheral edema , non-tender, peripheral pulses presents. Skin: No rashes, no lesions, warm to touch. multiple abrasions in face, scaly/dry skin patches in R elbow and knuckles. Neuro: No focal neurological deficits. motor and sensory intact. Discharge Plan Plan Patient Disposition: HOME (Self Care) Patient condition on transfer: Stable Prescriptions/Referrals Prescriptions/Med Rec: New fluconazole 200 mg tablet 400 mg PO QDAY 30 Days Qty: 60 2RF amoxicillin 875 mg tablet 875 mg PO BID 5 Days Qty: 10 0RF methylprednisolone [Medrol (Shay)] 4 mg tablets,dose pack 4 mg PO QAM Qty: 21 0RF Continued albuterol sulfate 90 mcg/actuation Hfa Aerosol Inhaler 1 inh INHALATION QID PRN (Reason: Shortness Of Breath Or Wheezing) ibuprofen 600 mg tablet 600 mg PO Q6H Qty: 30 0RF naloxone [Narcan] 4 mg/actuation spray,non-aerosol 4 mg intranasal Q3M PRN (Reason: opioid overdose) Qty: 2 0RF Rx Instructions: spray 1 dose into ONE nostril; alternate nostrils w each dose until help arrives Referrals: No Primary/Family,Physician [Primary Care Provider] - Patient/Caregiver Discharge Instructions Discharge Activity: activity as tolerated Other Discharge Activity Instructions:: Continue amoxicillin for 5 days Follow-up with PCP 1 to 2 weeks after discharge Continue Solu-Medrol Dosepak Return to ED if symptoms worsen Encourage you to discontinue drugs continue fluconazole , follow-up with PCP for IgG report Print Language: Kiswahili Stand Alone Forms: Anna Award Info., Patient Portal Info Letter Discharge Order Discharge Orders: Discharge (Routine); Ordered 08/26/24 Ordered By: Glendy Rabago Quality Discharge Quality Measures VTE prophylaxis MD Attestestation MD Attestation I reviewed labs, imaging, EKG, home medications and prior available records. Face to face evaluation was performed by me. I have personally examined the patient and discussed assessment and plan with the IM team. I reviewed the resident note and agree with the plan with exceptions as below. Acute hypoxic respiratory failure Bilateral pneumonia Asthma exacerbation Hyponatremia Acute hypotension Leukocytosis Polysubstance abuse Will discharge on amoxicillin and fluconazole He is on room air Albuterol as needed for asthma. Steroid taper on discharge Monitor WBC: Downtrending Sodium improved. Repeat BMP in 1 week Time spent is 40 minutes. More than 50% of the time was spent on patient education and coordination of care.
--- NOTE | 2024-08-26 13:25 | PC.SS ---
Patient is alert/oriented. He resides at a drug rehab program. Patient states he's independent with ADL's. No DME. Patient verbalized his father, Hollis, is his alt medical decision maker. Patient will return to rehab today. No deficits. Admitted for acute hypoxic resp failure. Patient PCP: Dr. Silvestre. Last appt. was 2 years ago. Patient was open to [facility]. Pharmacy: [facility] . set up uber transport for today.
[2024-08-30 06:39] LABS: Legionella Ag, EIA, Urine* NOT DETECTED
== END 2024-08-26 12:13 | DRG 720 ==
LOC: SERX 19:15 → SERHOLD 20:23 → S2NX 23:28
PROVIDERS: Registered Nurse General Practice; Student in an Organized Health Care Education/Training Program; Admitting Provider Internal Medicine; Emergency Provider Emergency Medicine; Visit Provider Internal Medicine
DX: A41.9 Sepsis, unspecified organism (principal); J96.01 Acute respiratory failure with hypoxia; J45.901 Unspecified asthma with (acute) exacerbation; E87.1 Hypo-osmolality and hyponatremia; B38.2 Pulmonary coccidioidomycosis, unspecified; E83.42 Hypomagnesemia; N17.9 Acute kidney failure, unspecified; F15.10 Other stimulant abuse, uncomplicated; D68.9 Coagulation defect, unspecified; F11.10 Opioid abuse, uncomplicated; F12.10 Cannabis abuse, uncomplicated; F17.210 Nicotine dependence, cigarettes, uncomplicated; R65.20 Severe sepsis without septic shock; Z59.00 Homelessness unspecified
CPT/HCPCS: 36415; 36600; 71045; 76705; 80053; 80307; 81001; 82803; 83036; 83605; 83615; 83690; 83735; 83880; 84100; 84145; 84443; 84484; 85025; 85610; 85730; 86403; 86635; 86703; 86706; 87040; 87081; 87086; 87205; 87340; 87400; 87449; 87634; 87811; 93005; 93306; 94640; 94762; 99285; A9270; J0696; J1650; J2470; J2543; J2919; J3475; J7120